=== PATIENT | female | born 1970 | race Caucasian/White ===

== ENCOUNTER 2023-04-14 16:20 | Emergency (ER) | payer SELFPAY ==
[~2023-04-14] VITALS: Ht 167.6 cm; Wt 70.5 kg
[2023-04-14 16:21] VITALS: TEMP 98.8
[2023-04-14 19:34] LABS: BASOPHILS % (AUTO) 0.3 % (0.0-2.0); EOSINOPHILS % (AUTO) 1.4 % (1.0-6.0); HEMATOCRIT 41.8 % (36-46); HEMOGLOBIN 13.7 g/dL (12.0-16.0); LYMPHOCYTES # (AUTO) 2.7 K/uL (1.0-4.8); LYMPHOCYTES % (AUTO) 38.4 % (22.0-44.0); MEAN CORPUSCULAR HEMOGLOBIN 27.4 pg (26.0-34.0); MEAN CORPUSCULAR HGB CONC 32.8 G/dL (31.0-37.0); MEAN CORPUSCULAR VOLUME 83 fL (80-100); MONOCYTES # (AUTO) 0.4 K/uL (0.1-1.0); NEUTROPHILS # (AUTO) 3.8 K/uL (1.8-7.7); NEUTROPHILS % (AUTO) 53.9 % (40.0-70.0); PLATELET COUNT (AUTO) 263 K/uL (150-450); RED BLOOD CELL COUNT(AUTO) 5.01 MIL/uL (4.00-5.20); RED CELL DISTRIBUTION WIDTH 12.4 % (11.5-14.5); WHITE BLOOD COUNT (AUTO) 7.1 K/uL (4.5-11.0)
[2023-04-14 19:36] LABS: ANION GAP 7 mmol/L (8-16); CALCIUM, TOTAL 9.7 mg/dL (8.8-10.5); CARBON DIOXIDE 28 mmol/L (22-29); CHLORIDE 99 mmol/L (98-107); CREATININE 0.64 mg/dL (0.60-1.30); GLOMERULAR FILTR. RATE CALC > 60 mL/min (>60); GLUCOSE,RANDOM 349 mg/dL (70-110); POTASSIUM 4.2 mmol/L (3.5-5.1); SODIUM SERUM 134 mmol/L (136-145); UREA NITROGEN, BLOOD 18 mg/dL (7-18)
[2023-04-14 19:43] LABS: ALANINE AMINOTRANSFERASE 30 U/L (12-78); ALBUMIN 3.5 g/dL (3.4-5.0); ALKALINE PHOSPHATASE 108 U/L (46-116); ASPARTATE AMINOTRANSFERASE 18 U/L (15-37); BILIRUBIN,TOTAL 0.3 mg/dL (0.1-1.0); LIPASE 48 U/L (16-77); TOTAL PROTEIN, SERUM 7.9 g/dL (6.4-8.2); TROPONIN I-HIGH SENSITIVITY 5 ng/L (<51)
[2023-04-14] MEDS: INSULIN REGULAR, HUMAN 100 UNITS/ML IVP ONE (21:02)
[2023-04-14] MEDS: SODIUM CHLORIDE 0.9% 1,000 ML IV ONE (21:03)
[2023-04-14] MEDS: METOCLOPRAMIDE HCL 5 MG/ML 2 ML VIAL IVP ONE (22:12)
[2023-04-14] MEDS: KETOROLAC TROMETHAMINE 30 MG/ML VIAL IVP ONE (22:12)
[2023-04-14] MEDS: DiphenhydrAMINE HCL 50 MG/ML VIAL IVP ONE (22:13)
[2023-04-14 22:55] VITALS: BP 123/71; PULSE 76; RESP 18
[2023-04-14] MEDS ORDERED: METF-910 PO (23:07)
[2023-04-14] MEDS ORDERED: ACYC-138 PO (23:08)
[2023-04-14] MEDS ORDERED: PRED-554 PO (23:08)
[2023-04-14] MEDS ORDERED: LANO3.5O OD (23:09)
[2023-04-14] MEDS: PredniSONE 20 MG TABLET PO ONE (23:21)
[2023-04-15 00:01] LABS: GLUCOMETER DEV NAME(LOC) ERT.5; GLUCOSE,POINT OF CARE 337 MG/DL (70-110)
== END 2023-04-14 23:55 | disposition home or self-care (01) ==
LOC: EMS 16:21
DX: G51.0 Bell's palsy (principal); E11.65 Type 2 diabetes mellitus with hyperglycemia; E86.0 Dehydration; Z90.49 Acquired absence of other specified parts of digestive tract; Z98.890 Other specified postprocedural states
CPT/HCPCS: 99285; 96374; 96375; 70450; 96361; 80053; 82962; 83690; 84484; 85025; 93005; J1200; J1815; J1885; J2765; J7512; J7030; 36415-L1; 36415-TC